=== PATIENT | female | born 1950 | race Caucasian/White ===

== ENCOUNTER 2017-01-27 00:21 | Emergency (ER) | payer MEDICARE, MEDICAID ==
[2017-01-27 01:15] VITALS: BP 128/58; PULSE 78; RESP 20; TEMP 96.8; O2SAT 98
[2017-01-27 01:20] LABS: BASOPHILS % (AUTO) 1 % (0-3); EOSINOPHILS % (AUTO) 2 % (0-9); HEMATOCRIT 33 % (35-47); MEAN CORPUSCULAR HGB CONC 35.8 gm/dl (32.0-36.0); MEAN CORPUSCULAR VOLUME 89 fL (81-99); MONOCYTES % (AUTO) 9.2 % (0-12); NEUTROPHILS % (AUTO) 67.3 % (37-80)
[2017-01-27 01:26] LABS: CALCIUM 9.3 mg/dl (8.5-10.1); POTASSIUM 3.1 mMol/L (3.5-5.1)
[2017-01-27 01:35] LABS: APPEARANCE,URINE Clear; BILIRUBIN,URINE NEGATIVE (NEGATIVE); COLOR,URINE Yellow; GLUCOSE, URINE (UA) NEGATIVE (NEGATIVE); KETONES,URINE NEGATIVE (NEGATIVE); LEUKOCYTE ESTERASE ,URINE 1+ (NEGATIVE); NITRATE,URINE NEGATIVE (NEGATIVE); OCCULT BLOOD,URINE NEGATIVE (NEG-TRACE); PH,URINE 5.5; UROBILINOGEN,URINE 0.2 (0.2-1.0 EU)
[2017-01-27] MEDS ORDERED: POTASSIUM CHLORIDE 10 MEQ TER PO ONE (01:36)
[2017-01-27 01:49] LABS: AMPHETAMINES NEGATIVE (NEGATIVE); METHADONE NEGATIVE (NEGATIVE); OPIATES(OP13) NEGATIVE (NEGATIVE); OXYCODONE(OXY) NEGATIVE (NEGATIVE); PROPOXYPHENE(PPX) NEGATIVE (NEGATIVE); RBC,URINE NEG (0-3AV/HPF); TRICYCLIC ANTIDEPRESSANTS POSITIVE (NEGATIVE)
[2017-01-27] MEDS ORDERED: POTASSIUM CHLORIDE 10 MEQ TER ONE (01:49)
== END 2017-01-27 01:58 | disposition home or self-care (01) | DRG 883 ==
LOC: ED 00:21
DX: F69 Unspecified disorder of adult personality and behavior (principal); Z86.73 Personal history of transient ischemic attack (TIA), and cerebral infarction without residual deficits
CPT/HCPCS: 36415; 80048; 80305; 81001; 85025; 87088; 99282

== ENCOUNTER 2018-02-02 19:08 | Inpatient (IN) | payer MEDICARE, MEDICAID ==
[2018-02-02 20:11] LABS: HEMATOCRIT 45 % (35-47); HEMOGLOBIN 15.4 gm/dl (12.0-15.5); MEAN CORPUSCULAR HEMOGLOBIN 27.9 pg (27.0-32.0); MEAN CORPUSCULAR HGB CONC 34.7 gm/dl (32.0-36.0)
[2018-02-02 20:29] LABS: MEAN CORPUSCULAR VOLUME 81 fL (81-99)
[2018-02-02 20:31] LABS: ALBUMIN 4.3 gm/dl (3.4-5.0); ALCOHOL 0.004 gm/dl (0.000-0.08); BILIRUBIN,TOTAL 0.7 mg/dl (0.2-1.0); CALCIUM 10.5 mg/dl (8.5-10.1); CARBON DIOXIDE 33.7 mEq/L (21-32); CREATININE 1.95 mg/dl (0.60-1.00); THYROID STIMULATING HORMONE 3.512 uIU/ml (0.358-3.740); TOTAL PROTEIN 8.4 gm/dl (6.4-8.2)
[2018-02-02 20:32] LABS: POTASSIUM 2.1 mMol/L (3.5-5.1)
[2018-02-02] MEDS ORDERED: SODIUM CHLORIDE 0.9% 1000ML 1,000 ML IV ONE (20:40)
[2018-02-02 20:45] LABS: APPEARANCE,URINE Clear; BILIRUBIN,URINE NEGATIVE (NEGATIVE); COLOR,URINE Yellow; GLUCOSE, URINE (UA) NEGATIVE (NEGATIVE); KETONES,URINE NEGATIVE (NEGATIVE); LEUKOCYTE ESTERASE ,URINE TRACE (NEGATIVE); NITRATE,URINE NEGATIVE (NEGATIVE); OCCULT BLOOD,URINE 1+ (NEG-TRACE); UROBILINOGEN,URINE 0.2 (0.2-1.0 EU)
[2018-02-02 20:50] LABS: BAND NEUTROPHILS % (MANUAL) 1 %; BASOPHILS % (MANUAL) 0 % (0-3); EOSINOPHILS % (MANUAL) 0 % (0-9); LYMPHOCYTES % (MANUAL) 9 % (10-50); MONOCYTES % (MANUAL) 5 % (0-12); NEUTROPHILS % (MANUAL) 85 % (37-80); NORMAL RBCS PRESENT
[2018-02-02] MEDS ORDERED: POTASSIUM CHLORIDE 10 MEQ TER PO ONE (20:51)
[2018-02-02 21:00] LABS: AMPHETAMINES NEGATIVE (NEGATIVE); BACTERIA NEGATIVE (< 1+); BARBITUATES NEGATIVE (NEGATIVE); BENZODIAZEPINES POSITIVE (NEGATIVE); CANNABINOL(THC) NEGATIVE (NEGATIVE); COCAINE(COC) NEGATIVE (NEGATIVE); CRYSTALS NEGATIVE (0-3 AVE/HPF); EPITHELIAL CELLS 0-3 (SQUAMOUS); METHADONE NEGATIVE (NEGATIVE); METHAMPHETAMINES NEGATIVE (NEGATIVE); OPIATES(OP13) NEGATIVE (NEGATIVE); OXYCODONE(OXY) POSITIVE (NEGATIVE); PROPOXYPHENE(PPX) NEGATIVE (NEGATIVE); RBC,URINE NEG (0-3AV/HPF); TRICYCLIC ANTIDEPRESSANTS POSITIVE (NEGATIVE); WBC,URINE 0-2 (0-5AV/HPF)
[2018-02-02] MEDS ORDERED: POTASSIUM CHLORIDE 10 MEQ TER ONE (21:24)
[2018-02-02] MEDS ORDERED: POTASSIUM CHLORIDE 2 MEQ/ML 60 MEQ, LIDOCAINE HCL 1% MDV 2 ML in SODIUM CHLORIDE 0.9% 1... IV ONE (22:04)
[2018-02-02] MEDS ORDERED: PATIENT EDUCATION 1 MISC PRN (23:15)
[2018-02-02] MEDS ORDERED: LIDOCAINE HCL 1% MPF 30 SOL ONE (23:27)
[2018-02-02] MEDS ORDERED: POTASSIUM CHLORIDE 2 MEQ/ML SOL IV ONE (23:28)
[2018-02-02] MEDS: SODIUM CHLORIDE 0.9% 1000ML 1,000 ML IV SCH (23:42)
[2018-02-02] MEDS: APAP/OXYCODONE 325/5 TAB PO PRN (23:47)
[2018-02-03] MEDS ORDERED: POTASSIUM CHLORIDE 10 MEQ TER PO SCH (02:00)
[2018-02-03 07:22] LABS: CALCIUM 8.6 mg/dl (8.5-10.1); CARBON DIOXIDE 30.7 mEq/L (21-32); CREATININE 1.65 mg/dl (0.60-1.00)
[2018-02-03 07:27] LABS: POTASSIUM 2.6 mMol/L (3.5-5.1)
[2018-02-03] MEDS: SODIUM CHLORIDE 0.9% 1000ML 1,000 ML IV SCH (08:01)
[2018-02-03] MEDS ORDERED: POTASSIUM CHLORIDE 2 MEQ/ML SOL IV ONE (10:15)
[2018-02-03] MEDS ORDERED: POTASSIUM CHLORIDE 10 MEQ TER PO ONE ×2 (10:15→18:47)
[2018-02-03] MEDS ORDERED: LIDOCAINE HCL 1% MPF 30 SOL ONE (10:26)
[2018-02-03] MEDS: ENOXAPARIN 40 MG SOL SC SCH (10:33)
[2018-02-03] MEDS: APAP/OXYCODONE 325/5 TAB PO PRN (12:42)
[2018-02-03] MEDS ORDERED: APAP/OXYCODONE 325/5 TAB PO PRN (13:19)
[2018-02-03] MEDS ORDERED: FUROSEMIDE 40 MG TAB PO SCH (14:00)
[2018-02-03] MEDS: FUROSEMIDE 40 MG TAB PO SCH (14:09)
[2018-02-03 16:38] LABS: CARBON DIOXIDE 28.4 mEq/L (21-32); CREATININE 1.61 mg/dl (0.60-1.00); POTASSIUM 3.4 mMol/L (3.5-5.1)
[2018-02-03] MEDS: FAMOTIDINE 20 MG TAB PO SCH (20:35)
[2018-02-03] MEDS ORDERED: TRAZODONE HYDROCHLORIDE 50 MG TAB PO SCH (21:00)
[2018-02-04 07:34] LABS: CALCIUM 8.4 mg/dl (8.5-10.1); CARBON DIOXIDE 29.3 mEq/L (21-32); CREATININE 1.28 mg/dl (0.60-1.00); POTASSIUM 3.1 mMol/L (3.5-5.1)
[2018-02-04 07:56] LABS: HEMATOCRIT 37 % (35-47); HEMOGLOBIN 12.6 gm/dl (12.0-15.5); MEAN CORPUSCULAR HGB CONC 33.9 gm/dl (32.0-36.0); MEAN CORPUSCULAR VOLUME 83 fL (81-99)
[2018-02-04 08:00] VITALS: BP 100/66; PULSE 69; RESP 20; TEMP 97; O2SAT 100
[2018-02-04 08:43] LABS: BAND NEUTROPHILS % (MANUAL) 0 %; BASOPHILS % (MANUAL) 0 % (0-3); EOSINOPHILS % (MANUAL) 2 % (0-9); LYMPHOCYTES % (MANUAL) 22 % (10-50); MONOCYTES % (MANUAL) 9 % (0-12); NEUTROPHILS % (MANUAL) 67 % (37-80); NORMAL RBCS PRESENT
[2018-02-04] MEDS ORDERED: ASPIRIN 325 MG TAB PO SCH (09:00)
[2018-02-04] MEDS ORDERED: METOLAZONE 2.5 MG TABLET PO SCH (09:00)
[2018-02-04] MEDS ORDERED: SIMVASTATIN 20 MG TAB PO SCH (09:00)
[2018-02-04] MEDS ORDERED: POTASSIUM CHLORIDE 10 MEQ TER PO SCH ×2 (09:00→10:00)
[2018-02-04] MEDS: FUROSEMIDE 40 MG TAB PO SCH (10:04)
[2018-02-04] MEDS: FAMOTIDINE 20 MG TAB PO SCH (10:07)
[2018-02-04] MEDS: ENOXAPARIN 40 MG SOL SC SCH (10:10)
[2018-02-04] MEDS ORDERED: QUETIAPINE FUMARATE 25 MG TAB PO SCH (21:00)
== END 2018-02-04 11:10 | disposition home or self-care (01) | DRG 81 ==
LOC: ED 19:08 → ACUTE CARE 21:54 → UNDOADMOB 21:54 → ACUTE CARE 02-03 14:07 → INTOOBSV 02-03 14:07 → OBSVTOIN 02-03 14:07 → UNDODISIN 02-04 11:10
PROVIDERS: ADMIT Family Medicine; ATTEND Family Medicine
PROC: F01L5ZZ Range of Motion and Joint Integrity Assessment of Musculoskeletal System - Lower Back / Lower Extremity (ICD-10-PCS; principal; 2018-02-03)
PROC: F01ZBZZ Bed Mobility Assessment (ICD-10-PCS; 2018-02-03)
DX: E87.6 Hypokalemia (principal); E87.1 Hypo-osmolality and hyponatremia; S37.009A Unspecified injury of unspecified kidney, initial encounter; R40.0 Somnolence; E86.0 Dehydration; R53.83 Other fatigue
CPT/HCPCS: 36415; 80048; 80053; 80305; 80307; 81001; 84443; 85007; 85027; 93012; 96365; 99219; 99283; J1650; J3480; A9270; A9270-GY; J2001

== ENCOUNTER 2018-02-10 12:03 | Emergency (ER) | payer MEDICARE, OTHER ==
[2018-02-10 12:34] VITALS: TEMP 99.7
[2018-02-10 12:48] LABS: BASOPHILS % (AUTO) 2 % (0-3); EOSINOPHILS % (AUTO) 1 % (0-9); HEMATOCRIT 36 % (35-47); HEMOGLOBIN 12.3 gm/dl (12.0-15.5); LYMPHOCYTES % (AUTO) 21.6 % (10-50); MEAN CORPUSCULAR HEMOGLOBIN 28.4 pg (27.0-32.0); MEAN CORPUSCULAR VOLUME 84 fL (81-99); MONOCYTES % (AUTO) 9.8 % (0-12); NEUTROPHILS % (AUTO) 65.4 % (37-80)
[2018-02-10 13:09] LABS: BLOOD UREA NITROGEN 26 mg/dl (7-18); CALCIUM 8.9 mg/dl (8.5-10.1); CARBON DIOXIDE 35.7 mEq/L (21-32); CHLORIDE 93 mMol/L (98-107); CREATININE 1.26 mg/dl (0.60-1.00); GLOM FILT RATE 43 mL/min (>60); GLUCOSE 113 mg/dl (74-106); SODIUM 134 mMol/L (136-145); TROP I < 0.017 ng/ml (0.000-0.056)
[2018-02-10 13:10] VITALS: RESP 18
[2018-02-10 13:14] LABS: POTASSIUM 2.7 mMol/L (3.5-5.1)
[2018-02-10] MEDS ORDERED: POTASSIUM CHLORIDE 2 MEQ/ML SOL IV ONE ×2 (13:15→13:28)
[2018-02-10] MEDS ORDERED: LIDOCAINE HCL 1% MPF 30 SOL ONE (13:15)
[2018-02-10] MEDS ORDERED: POTASSIUM CHLORIDE 10 MEQ TER PO ONE (13:34)
[2018-02-10] MEDS ORDERED: POTASSIUM CHLORIDE 10 MEQ TER ONE (13:36)
[2018-02-10 14:48] VITALS: BP 150/85; PULSE 66; O2SAT 100
== END 2018-02-10 14:41 | disposition home or self-care (01) | DRG 69 ==
LOC: ED 12:03
DX: G45.9 Transient cerebral ischemic attack, unspecified (principal); E87.6 Hypokalemia
CPT/HCPCS: 36415; 70450; 80048; 84484; 85025; 99284; 99285; J3480; A9270-GY; J2001